=== PATIENT | male | born 1985 | race Caucasian/White ===

== ENCOUNTER 2016-09-28 10:15 | Outpatient (RCR) | payer OTHER | END 2016-10-04 | LOC: M PT 10:15 | PROVIDERS: ATTEND Orthopaedic Surgery | DX: Z51.89 Encounter for other specified aftercare (principal) ==

== ENCOUNTER 2016-10-12 10:03 | Outpatient (RCR) | payer OTHER | END 2016-11-03 | disposition home or self-care (01) | LOC: M PT 10:03 | PROVIDERS: ATTEND Orthopaedic Surgery | DX: Z51.89 Encounter for other specified aftercare (principal); Z98.890 Other specified postprocedural states ==